=== PATIENT | female | born 1995 ===

== ENCOUNTER 2021-05-18 14:47 | Inpatient (IN) | payer OTHER ==
[2021-05-18] MEDS ORDERED: BUTORPHANOL TARTRATE 2 MG/ML VIAL IVPUSH ONE (16:08)
[2021-05-18] MEDS ORDERED: PROMETHAZINE HCL 25 MG/1 ML VIAL IVPUSH ONE (16:08)
[2021-05-18] MEDS ORDERED: BUTORPHANOL TARTRATE 2 MG/ML VIAL ONE (16:08)
[2021-05-18] MEDS ORDERED: DEXTROSE 5%-LACTATED RINGERS 1,000 ML IV SCH (16:15)
[2021-05-18 17:14] VITALS: BMI 32.1
[2021-05-18 18:12] LABS: BASO % 0.2 % (0-2.0); EOS % 0.2 % (0-4.5); HEMATOCRIT 32.5 % (32.4-45.2); LYMPH % 12.3 % (8-40); MCH 27.2 pg (25.7-33.7); MCHC 33.8 g/dl (32.0-36.0); MEAN CELL VOLUME 80.6 fl (80-96); MEAN PLT VOLUME 8.5 fl (7.5-11.1); MONO % 4.5 % (3.8-10.2); NEUT % 82.8 % (42.8-82.8); PLATELET COUNT 308 10^3/uL (134-434); RBC 4.04 M/mm3 (3.60-5.2); RDW 13.6 % (11.6-15.6)
[2021-05-18 18:18] LABS: INR 1.05 (0.83-1.09); PROTHROMBIN TIME (PATIENT) 12.1 SEC (9.7-13.0)
[2021-05-18 18:21] VITALS: BP 136/76; PULSE 91; TEMP 98.2
[2021-05-18 18:21] LABS: ACTIVATED PTT 28.7 SECONDS (25.2-36.5)
[2021-05-18 18:32] LABS: CALCIUM 8.9 mg/dL (8.5-10.1)
[2021-05-18 18:33] LABS: ALBUMIN 3.1 g/dl (3.4-5.0); BLOOD UREA NITROGEN 8.3 mg/dL (7-18)
[2021-05-18 18:36] LABS: CREATININE 0.6 mg/dL (0.55-1.3)
[2021-05-18 18:38] LABS: BILIRUBIN,TOTAL 0.4 mg/dL (0.2-1); TOT PROT 6.6 g/dl (6.4-8.2)
[2021-05-18 19:01] LABS: SYPHILIS W/ RPR CONF NON-REACTIVE (NONREACTIVE)
[2021-05-18] MEDS ORDERED: ACETAMINOPHEN 1000 MG/100 ML BAG IVPB ONE (19:05)
[2021-05-18] MEDS ORDERED: ACETAMINOPHEN INJECTION 100 ML IVPB ONE (19:08)
[2021-05-18 19:30] LABS: HIV INTERPRETATION NEGATIVE (NEGATIVE)
== END 2021-05-18 19:55 | disposition short-term general hospital (02) | DRG 566 ==
LOC: JDEL 14:47 → JLDR 17:00
PROVIDERS: ADMIT Obstetrics & Gynecology; ATTEND Obstetrics & Gynecology
DX: O26.893 Other specified pregnancy related conditions, third trimester (principal); Z3A.34 34 weeks gestation of pregnancy; N83.201 Unspecified ovarian cyst, right side
CPT/HCPCS: 36415; 76775-TC; 80053; 85025; 85610; 85730; 86140; 86780; 86850; 86900; 86901; 87389; C9803; J0131; U0003; U0005